=== PATIENT | female | born 1990 | race Two or more races ===

== ENCOUNTER 2019-01-05 08:10 | Emergency (ER) | payer SELFPAY ==
[~2019-01-05] VITALS: Ht 167.6 cm; Wt 90.7 kg
[2019-01-05 08:47] VITALS: BP 141/85
--- NOTE | 2019-01-05 08:55 | PHYS DOC ---
Adult General Chief Complaint Chief Complaint: SKIN PROBLEM HPI HPI Patient is a 28 year old female who presents with hives all over her body since Tuesday she went to her primary care doctor and they gave her a prednisone taper and Zyrtec. Patient states that the rash keeps coming and going since she st arted the medication. Patient states she does not know which she is coming in contact with that she has not been working outside, no new pets, no new lotions, soaps, oils, medications, supplements, shampoos. Patient states no one else in the house has this rash. Patient states last night she woke up feeling like her chest was tight and she still feels like it slightly tight. Review of Systems Review of Systems Constitutional: Denies fever or chills [] Eyes: Denies change in visual acuity, redness, or eye pain [] HENT: Denies nasal congestion or sore throat [] Respiratory: Chest tightness. Denies cough or shortness of breath [] Cardiovascular: No additional information not addressed in HPI [] GI: Denies abdominal pain, nausea, vomiting, bloody stools or diarrhea [] : Denies dysuria or hematuria [] Musculoskeletal: Denies back pain or joint pain [] Integument: hives rash or skin lesions [] Neurologic: Denies headache, focal weakness or sensory changes [] Endocrine: Denies polyuria or polydipsia [] All other systems were reviewed and found to be within normal limits, except as documented in this note. Current Medications Current Medications Current Medications Medications (Trade) Dose Ordered Sig/Juan Jose Start Time Stop Time Status Last Admin Dose Admin Albuterol Sulfate (Ventolin Neb Soln) 2.5 mg 1X ONCE 01/05/19 09:00 01/05/19 09:01 UNV 01/05/19 09:04 2.5 MG Physical Exam Physical Exam Constitutional: Well developed, well nourished, no acute distress, non-toxic appearance. [] HENT: Normocephalic, atraumatic, bilateral external ears normal, oropharynx moist, no oral exudates, nose normal. [] Eyes: PERRLA, EOMI, conjunctiva normal, no discharge. [] Neck: Normal range of motion, no tenderness, supple, no stridor. [] Cardiovascular:Heart rate regular rhythm, no murmur [] Lungs & Thorax: Bilateral breath sounds clear to auscultation [] Abdomen: Bowel sounds normal, soft, no tenderness, no masses, no pulsatile masses. [] Skin:Generalized hives on body. Warm, dry, no erythema, no rash. [] Back: No tenderness, no CVA tenderness. [] Extremities: No tenderness, no cyanosis, no clubbing, ROM intact, no edema. [] Neurologic: Alert and oriented X 3, normal motor function, normal sensory function, no focal deficits noted. [] Psychologic: Affect normal, judgement normal, mood normal. [] Current Patient Data Vital Signs Vital Signs Date Time Temp Pulse Resp B/P (MAP) Pulse Ox O2 Delivery O2 Flow Rate FiO2 01/05/19 09:06 100 Room Air 01/05/19 08:47 98.2 94 18 141/85 (103) 98.2 EKG EKG [] Radiology/Procedures Radiology/Procedures [] Impressions: [facility] [address] [place] [address] IMAGING REPORT Signed PATIENT: DARSHAN VELIZ FACCOUNT: [id number] : 1990 LOCATION: ER AGE: 28 SEX: F EXAM STATUS: REG ER ORD. PHYSICIAN: MIREYA SCHOFIELD APRN REASON: soa, HIVES PROCEDURE: CHEST PA & LATERAL EXAM: PA and Lateral Views of the Chest DATE: 01/05/2019 8:53 AM INDICATION: Respiratory failure COMPARISON: No Prior FINDINGS: The heart is not enlarged. Mediastinal and hilar contours are normal. No focal parenchymal airspace opacity. No pleural effusion or pneumothorax. IMPRESSION: 1. No radiographic evidence for acute cardiopulmonary process. Electronically signed by: Matthias Cristina MD (01/05/2019 9:17 AM) [id number] DICTATED and SIGNED BY: MATTHIAS CRISTINA MD DATE: 01/05/19 0917 Course & Med Decision Making Course & Med Decision Making Patient is a 28 year old female who presents with hives all over her body since Tuesday she went to her primary care doctor and they gave her a prednisone taper and Zyrtec. Patient states that the rash keeps coming and going since she started the medication. Patient states she does not know which she is coming in contact with that she has not been working outside, no new pets, no new lotions, soaps, oils, medications, supplements, shampoos. Patient states no one else in the house has this rash. Patient states last night she woke up feeling like her chest was tight and she still feels like it slightly tight. Alert and oriented. Speaks in full clear sentences. Vital signs within normal limits. Lungs are clear to auscultation all lobes. Patient denies abdominal pain, nausea, vomiting, diarrhea, cough, history of asthma, dizziness, shortness of breath, control use, chest pain. No extremity swelling. Skin is pink warm and dry. Mucous membranes are moist. Patient has hives on her arms, face, chest. There is no lip or tongue or throat swelling or hives in the mouth. PERRLA. Patient is told to continue taking prednisone and Zyrtec. I have ordered her a chest x-ray and a breathing treatment. Chest x-ray shows no acute findings. Patient to continue taking prednisone and Zyrtec and to call her primary care doctor so she can be referred to an customer account coordinator. I will give her a albuterol inhaler as she stated that the breathing treatment did help open her chest. I also educated her on an EpiPen and to only take it if her throat is starting to close her lips are starting to swell and she must call 911. I told her this is for emergency only use. Dragon Disclaimer Dragon Disclaimer This electronic medical record was generated, in whole or in part, using a voice recognition dictation system. Departure Departure Impression: Primary Impression: Hives Disposition: 01 HOME, SELF-CARE Condition: STABLE Referrals: GIANNA TRINH (PCP) Patient Instructions: Epinephrine injection (Auto-injector), Hives Additional Instructions: Follow-up with her primary care provider so that he may be for her to an allergen. Continue taking prednisone and Zyrtec. Use the inhaler for shortness of breath or chest tightness. Remember that the EpiPen is for emergency use only and to call 911 if your airway is swelling. Scripts Epinephrine (Epipen) 0.3 Mg/0.3 Ml Auto.injct 0.3 MG IJ PRN PRN for ANAPHYLAXIS, #1 SYR Prov: MIREYA SCHOFIELD PEARL HAND 01/05/19 Albuterol Sulfate (PROAIR HFA INHALER) 8.5 Gm Hfa.aer.ad 1 PUFF INH PRN Q6HRS PRN for SHORTNESS OF BREATH, #1 INHALER 0 Refills Prov: MIREYA SCHOFIELD APRN 01/05/19 MIREYA SCHOFIELD APRN Jan 05, 2019 08:55
[2019-01-05] MEDS ORDERED: ALBUTEROL SULFATE 2.5 MG/3 ML NEBU. NEB ONE (09:00)
--- NOTE | 2019-01-05 09:20 | RAD ---
EXAM: PA and Lateral Views of the Chest DATE: 01/05/2019 8:53 AM INDICATION: Respiratory failure COMPARISON: No Prior FINDINGS: The heart is not enlarged. Mediastinal and hilar contours are normal. No focal parenchymal airspace opacity. No pleural effusion or pneumothorax. IMPRESSION: 1. No radiographic evidence for acute cardiopulmonary process. Electronically signed by: Matthias Vega MD (01/05/2019 9:17 AM) [id number]
[2019-01-05] MEDS ORDERED: ALBU2.5V8 INH (09:31)
[2019-01-05] MEDS ORDERED: EPIPEN0.3 MG/0.3 IJ (09:31)
== END 2019-01-05 09:54 | disposition home or self-care (01) ==
LOC: ER 08:10
DX: L50.9 Urticaria, unspecified (principal); R06.02 Shortness of breath; R07.89 Other chest pain
CPT/HCPCS: 71046; 94640; 99284; J7613